=== PATIENT | female | born 1960 | race Two or more races ===

== ENCOUNTER 2024-10-21 03:12 | Emergency (ER) | payer BC, SELFPAY ==
[2024-10-21 03:16] VITALS: BP 130/84; PULSE 74; RESP 18; TEMP 36.4; O2SAT 99
[2024-10-21 04:44] VITALS: BMI 33.9
--- NOTE | 2024-10-21 04:46 | XR_ITS ---
Examination: Abdomen sonogram, Limited Date and time of exam: October 21, 2024, 0418 hrs. Indications: Right upper abdominal pain beginning several days ago Technique: Real-time mathis scale transabdominal sonographic images of the upper abdomen obtained. Findings: Gallbladder sludge with gallstones Gallbladder wall 0.3 cm Common bile duct 0.6 cm. Pancreatic head 2.8 cm Liver 16.0 cm smooth contour no focal liver lesions. Normal hepatopedal portal venous flow Patent IVC Impression: Cholelithiasis, negative for cholecystitis.
--- NOTE | 2024-10-21 04:53 | PD.EDRME ---
Rapid Medical Screening Exam E Arrival date/time: 10/21/24 03:12 63F with history of HTN and CVA presents to ED with 4 days of worsening RUQ/epigastric pain and N/V. Chief Complaint: Abdominal Pain
[2024-10-21 05:33] LABS: Basophils # (Auto) 0.0 Thou/mm3 (0.0-0.2); Basophils % (Auto) 1 % (0-2.5); Eosinophils # (Auto) 0.1 Thou/mm3 (0.0-0.5); Eosinophils % (Auto) 1 % (0-10); Hematocrit 40.3 % (36.0-46.0); Hemoglobin 13.6 g/dL (12.0-16.0); Immature Granulocytes Auto 0.02 Thou/mm3 (0.00-0.00); Lymphocytes # (Auto) 1.6 Thou/mm3 (1.0-4.8); Lymphocytes % (Auto) 19 % (10-50); Mean Corpuscular HGB Conc 33.7 g/dl (31.0-37.0); Mean Corpuscular Hemoglobin 31.0 pg (25.0-35.0); Mean Corpuscular Volume 92 fL (80-100); Monocytes # (Auto) 0.5 Thou/mm3 (0.0-0.8); Monocytes % (Auto) 6 % (0-12); Neutrophils # (Auto) 6.5 Thou/mm3 (1.8-7.7); Neutrophils % (Auto) 74 % (37-80); Nucleated Red Blood Cell # 0.00 Thou/mm3 (0.00-0.00); Nucleated Red Blood Cell % 0 /100 WBC (0); Platelet Count 267 Thou/mm3 (140-440); RDW Standard Deviation 40.5 fL (36.4-46.3); Red Blood Count 4.39 Miln/mm3 (4.00-5.20); White Blood Count 8.7 Thou/mm3 (3.6-11.0)
[2024-10-21] MEDS: ONDANSETRON INJ 2 MG/ML INJ 2 ML 4 MG IVP (05:33)
[2024-10-21] MEDS: MORPHINE SULF INJ 10 MG/ML VIAL 5 MG IVP (05:33)
[2024-10-21 05:40] VITALS: BP 149/75; PULSE 65; RESP 18; O2SAT 96
[2024-10-21 06:09] LABS: Alanine Aminotransferase 26 U/L (10-49); Albumin, Serum 4.5 gm/dL (3.4-4.8); Albumin/Globulin Ratio 1.9 (1.2-2.2); Alkaline Phosphatase 154 U/L (46-116); Anion Gap 11 (7-16); Aspartate Amino Transferase 24 U/L (0-34); BUN/Creatinine Ratio 19 Ratio (12-20); Bilirubin,Total 0.6 mg/dL (0.3-1.2); Blood Urea Nitrogen 17 mg/dL (9-23); Calcium 10.2 mg/dL (8.3-10.6); Calcium (Corrected) 10.2 mg/dL (8.5-10.1); Carbon Dioxide 28.1 mMol/L (20.0-31.0); Chloride 104 mMol/L (98-107); Creatinine (Component) 0.9 mg/dL (0.6-1.3); Estimated Creatinine Clearance 58.4 mL/min (>60); Globulin 2.4 gm/dL (2.3-3.5); Glucose 125 mg/dL (74-106); Lipase 32 U/L (12-53); Osmolality,Calculated 287 (275-295); Potassium 3.8 mMol/L (3.4-5.1); Sodium 143 mMol/L (136-145); Total Protein 6.9 gm/dL (5.7-8.2); eGFR > 60 See Note
--- NOTE | 2024-10-21 06:15 | EDNOTE_ITS ---
<Statement entered by Ofe Zhao MD - 11/06/24 06:33> I, Ofe Zhao MD, have reviewed the history, exam, and assessment of the patient. I have evaluated the patient independently and agree with the plan of care documented by [ ]. All diagnostic studies were reviewed and discussed. I confirm the diagnosis as documented by the Resident. I was present during the Medical Decision Making for this patient. The patient's plan of care was created between myself and the Resident and consistent with our discussion of the patient's case. ED General RME/HPI General Chief complaint: Abdominal Pain Stated complaint: R SIDE ABDOMINAL PAIN Time Seen by Provider: 10/21/24 05:58 Arrival date/time: 10/21/24 03:12 RME / HPI RME / HPI narrative: 10/21/24 03:12 63F with history of HTN and CVA presents to ED with 4 days of worsening RUQ/epigastric pain and N/V. 63-year-old female with past medical history of hypertension and previous CVA comes into the hospital with she complains of right upper quadrant pain/epigastric complaint along with nausea, vomiting, and feelings of abdominal distention. Patient states that she has had this pain for the past 4 days and that yesterday in the afternoon when she had a late lunch started having abdominal pain. Otherwise she mentions that the pain is worse at night around midnight. She denies having any shortness of breath, chest pain, changes in bowel movement, blood in the vomiting, or burning sensation urination. Otherwise has no other complaints. Denies any smoking, drugs, alcohol Related Data Allergies Allergy/AdvReac Type Severity Reaction Status Date / Time NKA* Allergy Uncoded 08/29/09 15:23 Review of Systems Review of Systems Systems Reviewed: All systems reviewed, normal except as documented Past Medical History Past Medical History Comments PMH COMMENT: PMH: CVA and hypertension Social Hx: Denies any smoking, drugs, alcohol ED Exam Narrative Physical exam: Gen: A&O X 3, NAD HEENT: NCAT, EOMI, Pupils reactive SANCHEZ, not icteric. External ears normal. No rhinorrhea. Moist mucous membranes. Neck: Supple, full range of motion, no observable masses, No meningeal sign. Lungs: No Respiratory distress, clear bilateral. CV: RRR, no murmurs. Abdomen: Soft, nondistended, mildly painful to palpation in RUQ, (-) Gonzalez's No rebound tenderness. MSK: No joint swelling, no redness, peripheral pulses presents, lumbar with no edema. Skin: No rashes, petechiae, lesions. Neuro: No focal neurological deficits appreciated, sensory and motor intact. Psych: Cooperative, appropriate mood and effect. Course Quality Measures none Orders Category Date Time Status Insert IV NOW Care 10/21/24 04:46 Active US gall bladder Stat Exams 10/21/24 04:46 Taken CBC Stat Lab 10/21/24 05:20 Completed CMP [Comprehensive Metabolic Panel] Stat Lab 10/21/24 05:20 Completed Lipase Stat Lab 10/21/24 05:20 Completed Morphine Inj Med 10/21/24 04:50 Discontinued 5 mg IVP X1 ONE Ondansetron Inj [Zofran Inj] Med 10/21/24 04:50 Discontinued 4 mg IVP X1 ONE Vital Signs Vital signs: Vital Signs Temperature 97.5 F 10/21/24 03:16 Pulse Rate 74 10/21/24 03:16 Respiratory Rate 18 10/21/24 03:16 Blood Pressure 130/84 10/21/24 03:16 Pulse Oximetry (%) 99 10/21/24 03:16 Oxygen Delivery Method Room Air 10/21/24 03:16 Discharge Plan Plan Patient Disposition: HOME (Self Care) Prescriptions/Referrals Referrals: Louis Rios PA-C [Primary Care Provider] - In 1 week Problem List Clinical Impression: Abdominal pain Patient/Caregiver Discharge Instructions Other Activity Instructions:: Please follow-up with your primary care physician within 1 to 2 days Please follow your primary care physician for gallbladder ultrasound results. Today you were liver function test was within normal limits including T bilirubin. You can take Tylenol every 6 hours as needed for pain for the next 2 or 3 days. Come back to the ED if you develop any fevers, worsening abdominal pain, nausea, vomiting, or any worsening symptoms. Por favor, consulte con lee m?dico de cabecera en un plazo de 1 a 2 d?as. Por favor, consulte con lee m?dico de cabecera para obtener los resultados de la ecograf?a de ves?cula biliar. Hoy, lee prueba de funci?n hep?stan result? dentro de los l?mites normales, incluyendo la bilirrubina T. Puede milady Tylenol cada 6 horas seg?n sea necesario para el dolor rajesh los pr?ximos 2 o 3 d?as. Regrese a urgencias si presenta fiebre, empeoramiento del dolor abdominal, n?useas, v?mitos o cualquier otro s?ntoma que empeore. Education Materials: Abdominal Pain, ED Abdominal Pain Unkn Cause Fem Print Language: [place] Islander Stand Alone Forms: Myriam Award Info., Patient Portal Info Letter MDM Narrative MDM hospital course: Patient was seen and evaluated upon arrival by myself. Patient's lab work was fairly unremarkable other than elevated alkaline phosphatase at 154. Patient states that she did get her gallbladder ultrasound taken, but this is still pending. Patient reevaluated stated that her abdominal pain is better, but she is feeling a little bit dizzy now. Will give patient something to eat and will reevaluate. Still pending ultrasound as ultrasound imaging have not been uploaded. US gallbladder was pending at time of DC due to delay in imaging uplaod. Patient was evaluated and stated that she felt better she was able to tolerate p.o. diet: [place], Jell-O and water. Not dizzy anymore. At this time we will discharge patient back home with close follow-up with primary care physician as no fevers or LFT elevation including T. Sanchez. Patient agrees with plan. Case disclosed with Attending Dr. Cece Veras PGY2 Disclaimer: Even though this this note was dictated by speech recognition and even though it was carefully revised there may still be minor errors in plane tableman due to voice recognition software. Medication Administration(s) Medication Administration History Discontinued Medications Morphine Sulfate (Morphine Sulf Inj 10 Mg/Ml Vial) 5 mg IVP X1 ONE Stop: 10/21/24 04:51 Last Admin: 10/21/24 05:33 Dose: 5 mg Documented By: BHAVIN Ondansetron HCl (Ondansetron Inj 2 Mg/Ml Inj 2 Ml) 4 mg IVP X1 ONE; Protocol Stop: 10/21/24 04:51 Last Admin: 10/21/24 05:33 Dose: 4 mg Documented By: BHAVIN
[2024-10-21 07:57] VITALS: BP 148/70; PULSE 60; RESP 18; TEMP 36.6; O2SAT 97
--- NOTE | 2024-10-21 07:59 | PC.NURSE ---
pt given food and water at this time to see if pt can tolerate it per dr delgado orders
== END 2024-10-21 08:40 | disposition home or self-care (01) ==
PROVIDERS: Physician Assistant; PCP Physician Assistant
DX: K80.20 Calculus of gallbladder without cholecystitis without obstruction (principal); I10 Essential (primary) hypertension; Z86.73 Personal history of transient ischemic attack (TIA), and cerebral infarction without residual deficits
CPT/HCPCS: 36415; 76705; 80053; 83690; 85025; 96374; 96375; 99283; J2270; J2405

== ENCOUNTER 2024-12-05 18:24 | Observation (INO) | payer BC, SELFPAY ==
--- NOTE | 2024-11-30 11:35 | EKG_ITS ---
[facility] (Formerly [facility]) Test Date: 2024-11-30 Pat Name: ABRAHAM Schumacherpartment: Room: - Gender: Female Order Picker/Assembler: SAMUEL : 1960 Requested By: Keyon Simmons Order Number: [id number] Reading MD: Keyon Simmons Measurements Intervals [place] Rate: 53 P: 31 [place]: 184 QRS: 34 QRSD: 85 T: 28 QT: 405 QTc: 384 Interpretive Statements SINUS BRADYCARDIA POSSIBLE ANTERIOR MYOCARDIAL INFARCTION , OF INDETERMINATE AGE [30 ms Q WAVE IN V3/V4, OR R < 0.2 mV IN V4] No previous ECG available for comparison /store/S0/[id number]/ecg/[id number]
[2024-11-30 11:45] VITALS: BMI 33.9
[2024-11-30 13:31] LABS: Basophils # (Auto) 0.0 Thou/mm3 (0.0-0.2); Basophils % (Auto) 1 % (0-2.5); Eosinophils # (Auto) 0.2 Thou/mm3 (0.0-0.5); Eosinophils % (Auto) 3 % (0-10); Hematocrit 40.9 % (36.0-46.0); Hemoglobin 13.8 g/dL (12.0-16.0); Immature Granulocytes Auto 0.02 Thou/mm3 (0.00-0.00); Lymphocytes # (Auto) 2.1 Thou/mm3 (1.0-4.8); Lymphocytes % (Auto) 43 % (10-50); Mean Corpuscular HGB Conc 33.7 g/dl (31.0-37.0); Mean Corpuscular Hemoglobin 31.2 pg (25.0-35.0); Mean Corpuscular Volume 92 fL (80-100); Monocytes # (Auto) 0.3 Thou/mm3 (0.0-0.8); Monocytes % (Auto) 7 % (0-12); Neutrophils # (Auto) 2.3 Thou/mm3 (1.8-7.7); Neutrophils % (Auto) 46 % (37-80); Nucleated Red Blood Cell # 0.00 Thou/mm3 (0.00-0.00); Nucleated Red Blood Cell % 0 /100 WBC (0); Platelet Count 264 Thou/mm3 (140-440); RDW Standard Deviation 41.3 fL (36.4-46.3); Red Blood Count 4.43 Miln/mm3 (4.00-5.20); White Blood Count 5.0 Thou/mm3 (3.6-11.0)
[2024-11-30 13:38] LABS: INR 1.0 (0.9-1.3); Partial Thromboplastin Time 28.8 Seconds (22.0-36.0); Prothrombin Time 11.0 Seconds (9.0-12.2)
[2024-11-30 13:44] LABS: Alanine Aminotransferase 31 U/L (10-49); Albumin, Serum 4.3 gm/dL (3.4-4.8); Albumin/Globulin Ratio 1.8 (1.2-2.2); Alkaline Phosphatase 121 U/L (46-116); Anion Gap 11 (7-16); Aspartate Amino Transferase 26 U/L (0-34); BUN/Creatinine Ratio 18 Ratio (12-20); Bilirubin,Total 0.6 mg/dL (0.3-1.2); Blood Urea Nitrogen 14 mg/dL (9-23); Calcium 9.2 mg/dL (8.3-10.6); Calcium (Corrected) 9.2 mg/dL (8.5-10.1); Carbon Dioxide 27.4 mMol/L (20.0-31.0); Chloride 105 mMol/L (98-107); Creatinine (Component) 0.8 mg/dL (0.6-1.3); Estimated Creatinine Clearance 65.8 mL/min (>60); Globulin 2.4 gm/dL (2.3-3.5); Glucose 99 mg/dL (74-106); Osmolality,Calculated 285 (275-295); Potassium 4.2 mMol/L (3.4-5.1); Sodium 143 mMol/L (136-145); Total Protein 6.7 gm/dL (5.7-8.2); eGFR > 60 See Note
[2024-12-05] VITALS (38 sets, daily range): BP systolic 77–169; BP diastolic 49–82; PULSE 54–96; RESP 11–27; TEMP 36–36.4; O2SAT 94–100; BMI 34.6; BMI 35.1
[2024-12-05] MEDS: RINGERS LACTATED 1000 ML 1,000 ML 20 ML IV (06:58)
--- NOTE | 2024-12-05 07:17 | CHAP ---
Prayed with patient for her upcoming procedure. Her family member translated for me as patient did not speak [place]ese.
--- NOTE | 2024-12-05 10:06 | SUR.PHASEI ---
pt received from OR in recovery bay 4. pt obtunded, breathing unlabored on oxymask 8l, oral airway in place. v/s stable. pt dressing to abd x4 cdi. report received from Dr. Soto and Bryan ROY.
--- NOTE | 2024-12-05 10:24 | PD.SUROPNT ---
Date of Procedure 12/05/24 Pre Op Diagnosis Symptomatic cholelithiasis Post Op Diagnosis Same Procedure Laparoscopic cholecystectomy Findings Patient was found to have large stone and multiple small stones with sludge with gallbladder showing some chronic inflammation with thickening Procedure Description After endotracheal anesthesia was given the patient was placed in supine position and the abdomen was prepped with chloroprep solution and draped in a sterile manner. After time out was performed I injected a few cc of of half percent Marcaine with epinephrine below the umbilicus and I made an incision for about 3 cm in length. The fascia was cleaned and Veress needle was inserted to create a pneumoperitoneum up to 15 mmHg. Then introduced a 12 mm trocar and a 10 mm camera through the fascia and I inspected the intra-abdominal organs as well as the gallbladder and the liver. Another 5 mm trocar was inserted in the epigastric region under direct vision after injecting some local anesthesia. At this time the patient was kept in reverse Trendelenburg position with the left lateral tilt. The third 5 mm trocar was inserted over the mid axillary line under direct vision and a Arnulfo and Gentry grasper was used to hold the fundus of the gallbladder. The retraction was carried out by the assistant professor of dietetics moving the fundus of the gallbladder towards the right shoulder of the patient to create enough traction. I placed a another 5 mm trocar in the midaxillary line just lateral to the rectus muscle under direct vision. I used a fenestrated grasper to retract the neck of the gallbladder laterally towards the patient's right hip. The Calot's triangle was exposed and I achieved the critical view of safety as follows: The common bile duct was very close to the gallbladder neck because the patient had a short cystic duct. I dissected out the fatty tissue from the hepatocystic triangle and cleared this area. I also dissected inferior and posterior to the gallbladder to identify the cystic duct and the gallbladder wall. Then superiorly I dissected along the cystic plate up to lower one third third of the gallbladder to lift the gallbladder from the liver. At this time I confirmed that only 2 structures entering the gallbladder were cystic artery and the cystic duct. The common duct was seen distally but no dissection was carried out around the duct. I did not see any need for operative cholangiogram in this patient. The cystic duct was clipped doubly and then divided and cystic artery was similarly dealt with. Then the gallbladder was removed from the liver bed using Harmonic monik to control the small blood vessels as the dissection proceeded. Then the gallbladder was from the liver bed completely and delivered through the umbilical port using an Endopouch. The liver bed was coagulated with cautery to obtain satisfactory hemostasis. I left a Surgicel at the liver bed the trocars were pulled out from the abdominal cavity and the fascia at the umbilical incision was closed with interrupted 0 Ethibond. Subcutaneous tissues was closed with 3-0 chromic and injected a few cc of half percent Marcaine with epinephrine and the skin was closed with interrupted 4-0 nylon stitches at all the trocar sites. Dressing was applied with 2 x 2 and Tegaderm. Patient tolerated the procedure well and returned to recovery room in stable condition. Anesthesia GETA Pathology / specimen Other (Gallbladder and the stones) Estimated Blood Loss 50 Surgeon Arleth Valencia MD Surgical Staff Operation Date: 12/05/24 08:00 Case Staff Anesthesiologist: Mikael Soto RN First Assistant: Bettie Myers
[2024-12-05] MEDS: ONDANSETRON INJ 2 MG/ML INJ 2 ML 4 MG IVP (11:38)
[2024-12-05] MEDS: fentaNYL CIT INJ 50 mCg/ML AMP 2ML 25 MCG IVP (12:01)
--- NOTE | 2024-12-05 12:06 | SUR.PHASEII ---
pt able to tolerate ice chips without difficulty swallowing or nausea/vomiting.
--- NOTE | 2024-12-05 12:50 | SUR.PHASEII ---
pt drowsy but arouses to voice, breathing unlabored, dressing to abdomen clean, dry, and intact, VS stable, report from Shorty ROY
--- NOTE | 2024-12-05 13:23 | SUR.PHASEII ---
pt stated she needed to void, attempted to sit pt on side of [facility] to prepare to stand, when pt stood up she became dizzy and was seated back on [facility]. pt suddenly became lethargic and began to lose control of her urine and urinated on the floor, pt was assisted to laying position on [facility] by myself, Becky ROY and Yesika ROY. Dr Soto notified and came to bedside. Pt BP 74/42 at [address] [facility], BP retaken at 1323 and was 88/51, pt drowsy but responding to voice, IV fluids reconnected and started per Dr Soto, BP rechecked at 1325 and was 112/57. Per Dr Soto-continue to monitor, no new orders.
--- NOTE | 2024-12-05 13:25 | SUR.PHASEII ---
report to Shorty ROY
[2024-12-05 14:16] LABS: Basophils # (Auto) 0.0 Thou/mm3 (0.0-0.2); Basophils % (Auto) 0 % (0-2.5); Eosinophils # (Auto) 0.0 Thou/mm3 (0.0-0.5); Eosinophils % (Auto) 0 % (0-10); Hematocrit 33.7 % (36.0-46.0); Hemoglobin 11.3 g/dL (12.0-16.0); Immature Granulocytes Auto 0.08 Thou/mm3 (0.00-0.00); Lymphocytes # (Auto) 0.8 Thou/mm3 (1.0-4.8); Lymphocytes % (Auto) 6 % (10-50); Mean Corpuscular HGB Conc 33.5 g/dl (31.0-37.0); Mean Corpuscular Hemoglobin 31.0 pg (25.0-35.0); Mean Corpuscular Volume 92 fL (80-100); Monocytes # (Auto) 0.2 Thou/mm3 (0.0-0.8); Monocytes % (Auto) 1 % (0-12); Neutrophils # (Auto) 13.0 Thou/mm3 (1.8-7.7); Neutrophils % (Auto) 93 % (37-80); Nucleated Red Blood Cell # 0.00 Thou/mm3 (0.00-0.00); Nucleated Red Blood Cell % 0 /100 WBC (0); Platelet Count 234 Thou/mm3 (140-440); RDW Standard Deviation 41.3 fL (36.4-46.3); Red Blood Count 3.65 Miln/mm3 (4.00-5.20); White Blood Count 14.0 Thou/mm3 (3.6-11.0)
--- NOTE | 2024-12-05 14:45 | SUR.PHASEII ---
pt awake and alert, requesting to use restroom. pt assisted to wheelchair. while in wheelchair pt had syncopal episode and urinated while in wheelchair. pt awoke after 2 minutes. pt was assisted back to bed and oxygen was placed on pt.
--- NOTE | 2024-12-05 14:45 | SUR.PHASEII ---
pt awake and alert, requesting to use restroom. pt assisted to wheelchair. while in restroom pt had syncopal episode and urinated while in wheelchair. pt awoke after 2 minutes. pt was assisted back to bed and oxygen was placed on pt.
--- NOTE | 2024-12-05 14:50 | SUR.PHASEII ---
Dr. Campbell and Dr. Soto contacted and informed of pts condition. Rn instructed to monitor pt until Dr. Campbell is able to come communicate with pt.
--- NOTE | 2024-12-05 15:05 | SUR.PHASEII ---
Dr. Soto at bedside to assess pts condition.
--- NOTE | 2024-12-05 15:23 | SUR.PHASEII ---
Dr. Campbell at bedside to assess pt condition. Rn informed to monitor pt until pt is more awake.
--- NOTE | 2024-12-05 16:22 | SUR.PHASEII ---
1622: Pt. AAOx4, vitals stable, breathing unlabored, no complaint of pain or nauseal, pt. sitting upright eating jello tolerating well, report received report from Shorty ROY.
--- NOTE | 2024-12-05 16:22 | SUR.PHASEII ---
report given to Amber ROY at this time. pt awake and alert, breathing unlabored on room air. v/s stable. pt dressing to abd cdi.
--- NOTE | 2024-12-05 16:56 | SUR.PHASEII ---
Attempted to stand pt. up again after she finished eating and after she verbalized that she felt better than earlier, pt. stood up for about a minute with assist and then started to close her eyes and sway backwards, pt. was assisted back into bed, BP was rechecked once in bed and her BP had dropped to 95/55 and her BP prior to standing was 121/64. Notified MD Valencia, let him know that pt. is past her 6 hour stay in PACU and that a decision had to be made for her to be placed in observation/admitted, MD Valencia stated he is at the clinic working and has a meeting and won't be able to make any decision until 7pm, and stated to just continue to monitor her. Pt. currently back in bed visiting her son. Vitals stable, breathing unlabored.
--- NOTE | 2024-12-05 18:20 | SUR.PHASEII ---
1820: Pt. AAOx4, vitals stable, breathing unlabored, no complaint of pain or nausea, x4 dressing to ABD CDI, no active bleed noted, pt. tolerated sips of water well and bites of jello well, MD Dee came at pt. bedside and consulted pt., he stated he wanted to modify MD Cardoza verbal order and put pt. on medtele. Gave report to Beth ROY prior to transfer to room 373, pt. transferred with all personal belongings, family made aware of transfer to room.
--- NOTE | 2024-12-05 20:55 | PD.RESCONSUL ---
HPI Data of Consult Consult date: 12/05/24 Requesting Physician: Arleth Valencia MD Admitting Provider: Arleth Valencia MD Attending Provider: Monik Palmer MD Primary Care Provider: Souleymane Rios PA-C Consult Narrative Reason for consult: Postop dizziness/lightheadedness History of present illness: Patient: 63-year-old female past medical history of hypertension, prior CVA Presenting Issue: Symptomatic cholelithiasis, admitted for laparoscopic cholecystectomy Reason for Consultation: Postoperative dizziness and lightheadedness on post-op day 1. Evaluation: The patient reports dizziness and lightheadedness upon standing. According to a family member at the bedside, she experienced a brief presyncopal episode earlier today, lasting a few minutes. Since then, the patient has stabilized and reports some improvement in her lightheadedness. She also endorses dry mouth, mild abdominal discomfort at the incision site, and orthostatic intolerance. The patient denies nausea, vomiting, headache, vision changes, or generalized weakness. Past Medical History: S/p CVA (August 19), HTN Family History: Noncontributory Surgical History: Hysterectomy Social History: Denies history of smoking, denies current alcohol use, denies recreational drug use Home medications: Aspirin 81 mg, atorvastatin 80 mg, Plavix 5 mg, famotidine 21, losartan 25 mg. cc:: cc: Arleth Valencia MD Review of Systems Constitutional Constitutional: Reports system reviewed and no additional complaints, except as documented Exam Vital Signs Temp Pulse Resp BP Pulse Ox O2 Del Method O2 Flow Rate 97.3 F 65 20 133/69 H 97 Nasal Cannula 2 12/05/24 18:34 12/05/24 18:34 12/05/24 18:34 12/05/24 18:34 12/05/24 18:34 12/05/24 18:34 12/05/24 18:34 Constitutional Constitutional: no acute distress and cooperative Routine HEENT Exam Head: Present normocephalic and atraumatic Eye: Present EOMI and PERRL ENT: Present mucous membranes dry Routine Respiratory Exam Respiratory: Present chest non-tender, lungs clear, normal breath sounds, no resp distress and CTA bilaterally Routine Cardiovascular Exam Cardiovascular: Present RRR, S1 and S2 Routine Abdominal Exam Abdominal: Present soft, normoactive bowel sounds and tenderness (generalized tenderness ) Routine Extremities Exam Extremities: Present full ROM and normal capillary refill Results Labs 12/05/24 13:40 12/05/24 23:47 Labs: Short CBC 12/05/24 Range/Units 13:40 WBC 14.0 H D (3.6-11.0) Thou/mm3 Hgb 11.3 L D (12.0-16.0) g/dL Hct 33.7 L (36.0-46.0) % Plt Count 234 D (140-440) Thou/mm3 Quality Measures Quality Measures none Medications Home Medications and Allergies Home Medications ?Medication ?Instructions ?Recorded ?Confirmed ?Type aspirin 81 mg tablet,delayed 81 mg PO QDAY 11/30/24 12/05/24 History release (Adult Aspirin Regimen) atorvastatin 80 mg tablet 80 mg PO QDAY 11/30/24 12/05/24 History clopidogrel 75 mg tablet (Plavix) 75 mg PO QDAY 11/30/24 12/05/24 History Held on 12/05/24. Instructions: Resume on 12/08/24. famotidine 20 mg tablet 20 mg PO QDAY 11/30/24 12/05/24 History losartan 25 mg tablet 25 mg PO QDAY 11/30/24 12/05/24 History Allergies Allergy/AdvReac Type Severity Reaction Status Date / Time No Known Allergies Allergy Verified 12/05/24 06:35 Visit Medications Lactated Ringer's (Lactated Ringers) 1,000 mls @ 20 mls/hr IV .Q24H ONE Stop: 12/06/24 05:59 Last Admin: 12/05/24 06:58 Dose: 20 mls/hr Ketorolac Tromethamine (Ketorolac Inj 30 Mg/Ml Vial) 30 mg IVP Q6HR PRN PRN Reason: PAIN SCALE 4-10(Mod-Sev Stop: 12/10/24 17:58 Ondansetron HCl (Ondansetron Inj 2 Mg/Ml Inj 2 Ml) 4 mg IV Q6HR PRN; Protocol PRN Reason: NAUSEA OR VOMITING Stop: 01/04/25 18:06 Discontinued Medications Fentanyl Citrate (Fentanyl Cit Inj 50 Mcg/Ml Amp 2ml) 25 mcg IVP Q5M PRN PRN Reason: PAIN SCALE 1-3 (mild Stop: 12/05/24 10:17 Last Admin: 12/05/24 12:01 Dose: 25 mcg Hydromorphone HCl (Hydromorphone Inj 2 Mg/Ml Vial) 0.4 mg IVP Q5M PRN PRN Reason: PAIN SCALE 7-10 (Severe Stop: 12/05/24 10:17 Morphine Sulfate (Morphine Sulf Inj 4 Mg/Ml Vial) 3 mg IV Q5M PRN PRN Reason: PAIN SCALE 4-6 (Moderate Stop: 12/05/24 10:17 Ondansetron HCl (Ondansetron Inj 2 Mg/Ml Inj 2 Ml) 4 mg IVP X1 ONE Stop: 12/05/24 08:17 Last Admin: 12/05/24 11:38 Dose: 4 mg Assessment & Plan Plan Patient is a 63-year-old female with a history of hypertension, prior CVA who presented with symptomatic cholelithiasis and was admitted for laparoscopic cholecystectomy. #Symptomatic Hypotension #Post op dizziness #LAP Beth POD 1 Patient reports dizziness and lightheadedness s/p surgery. Patient reported improved symptoms. Likely in setting of anaesthesia along with dehydration - Orthostatic vital, repeat another in the morning - Hold patient's home Losartan for BP<150 - Increase IV fluid hydration rate to 75cc/hr - Strict ins and out #Hypertension Hold home medications in setting of hypotension Resume once SBP>150 Chronic condition #S/p CVA with no residual deficit -Follow-up with primary team recommendation Patient seen and assessed under supervision of attending physician Dr.Alhalaibeh Candy Heaton MD PGY-1, Internal Medicine Please note: this document was transcribed using voice recognition technology; minor inaccuracies may be present.
[2024-12-05] MEDS: KETOROLAC INJ 30 MG/ML VIAL IVP (23:02)
[2024-12-06] VITALS (7 sets, daily range): BP systolic 130–154; BP diastolic 69–76; PULSE 72–101; RESP 16–96; TEMP 36.6–36.8; O2SAT 94–99
[2024-12-06 00:12] LABS: Anion Gap 13 (7-16); BUN/Creatinine Ratio 11 Ratio (12-20); Blood Urea Nitrogen 9 mg/dL (9-23); Calcium 9.3 mg/dL (8.3-10.6); Carbon Dioxide 20.6 mMol/L (20.0-31.0); Chloride 106 mMol/L (98-107); Creatinine (Component) 0.8 mg/dL (0.6-1.3); Estimated Creatinine Clearance 66.5 mL/min (>60); Glucose 177 mg/dL (74-106); Osmolality,Calculated 282 (275-295); Potassium 4.9 mMol/L (3.4-5.1); Sodium 140 mMol/L (136-145); eGFR > 60 See Note
--- NOTE | 2024-12-06 02:50 | PC.NURSE ---
Dr. Heaton notified that orthostatic vital signs are done and ready for them to view.
[2024-12-06 05:09] LABS: Basophils # (Auto) 0.0 Thou/mm3 (0.0-0.2); Basophils % (Auto) 0 % (0-2.5); Eosinophils # (Auto) 0.0 Thou/mm3 (0.0-0.5); Eosinophils % (Auto) 0 % (0-10); Hematocrit 29.8 % (36.0-46.0); Hemoglobin 10.0 g/dL (12.0-16.0); Immature Granulocytes Auto 0.07 Thou/mm3 (0.00-0.00); Lymphocytes # (Auto) 1.2 Thou/mm3 (1.0-4.8); Lymphocytes % (Auto) 9 % (10-50); Mean Corpuscular HGB Conc 33.6 g/dl (31.0-37.0); Mean Corpuscular Hemoglobin 30.9 pg (25.0-35.0); Mean Corpuscular Volume 92 fL (80-100); Monocytes # (Auto) 0.8 Thou/mm3 (0.0-0.8); Monocytes % (Auto) 6 % (0-12); Neutrophils # (Auto) 11.5 Thou/mm3 (1.8-7.7); Neutrophils % (Auto) 85 % (37-80); Nucleated Red Blood Cell # 0.00 Thou/mm3 (0.00-0.00); Nucleated Red Blood Cell % 0 /100 WBC (0); Platelet Count 271 Thou/mm3 (140-440); RDW Standard Deviation 41.6 fL (36.4-46.3); Red Blood Count 3.24 Miln/mm3 (4.00-5.20); White Blood Count 13.5 Thou/mm3 (3.6-11.0)
[2024-12-06 06:11] LABS: Anion Gap 10 (7-16); BUN/Creatinine Ratio 12 Ratio (12-20); Blood Urea Nitrogen 11 mg/dL (9-23); Calcium 9.5 mg/dL (8.3-10.6); Carbon Dioxide 25.3 mMol/L (20.0-31.0); Chloride 107 mMol/L (98-107); Creatinine (Component) 0.9 mg/dL (0.6-1.3); Estimated Creatinine Clearance 59.1 mL/min (>60); Glucose 152 mg/dL (74-106); Osmolality,Calculated 285 (275-295); Potassium 4.7 mMol/L (3.4-5.1); Sodium 142 mMol/L (136-145); eGFR > 60 See Note
[2024-12-06] MEDS: SODIUM CHLORIDE 0.9% 1000 ML 1,000 ML 100 ML IV (06:35)
--- NOTE | 2024-12-06 08:04 | EKG_ITS ---
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
--- NOTE | 2024-12-06 09:13 | PD.SURPROG ---
Documentation for date of: 12/06/24 Subjective Subjective Narrative: The patient is doing well during her stay last night. She did not have any dizziness while she was up. No history of orthostatic hypotension Exam Vital Signs Temp Pulse Resp BP Pulse Ox O2 Del Method O2 Flow Rate 98.2 F 82 16 134/69 H 94 L Room Air 2 12/06/24 08:00 12/06/24 08:00 12/06/24 08:00 12/06/24 08:00 12/06/24 08:00 12/06/24 08:00 12/06/24 00:00 Her vital signs are normal Routine Abdominal Exam Comments: Abdominal examination is negative Results Results: Laboratory Laboratory Narrative: Slight leukocytosis present on the lab work Assessment & Plan Plan Plan: Patient will be discharged today PROCEDURES: Procedures Laparoscopic cholecystectomy
--- NOTE | 2024-12-06 09:42 | PD.RESDS ---
Planned Discharge Date 12/06/24 DS: Providers Provider Date of admission: 12/05/24 18:24 Primary care physician: Souleymane Rios PA-C Admitting Provider: Arleth Valencia MD Attending Provider on Admission: Arleth Valencia MD Consults: 12/05/24 17:58 Consult to Adult Hospitalist Stat Comment: Consulting Provider: Emmanuel Dee 12/05/24 19:01 Referral Physical Therapy Routine Comment: Physician Instructions: Attending Provider on DC: Dr. Marks Discharging Provider: Dr. Marks Hospital Course Hospital Course Hospital course: Patient is a 63-year-old female with a history of hypertension, prior CVA who presented with symptomatic cholelithiasis and was admitted for laparoscopic cholecystectomy. Immediately following surgery patient had event of syncope, orthostatic vitals were noncontributory and 12/06 EKG had no abnormal findings. Today patient had no symptoms of dizziness, is safe to discharge. Discharge Instructions: #Symptomatic Hypotension #Post op dizziness #LAP Beth POD 1 #Hypertension Patient's plan and care discussed with my attending, Dr. Marks, and supervising resident MD Miguel A Nunez MD Internal Medicine PGY-1 Time Spent with Patient Time attestation: Total time spent providing and/or coordinating discharge services: Quality: VTE Deep Vein Thrombosis/Pulmonary Embolism Present on Admission: No Exam Vital Signs Temp Pulse Resp BP Pulse Ox O2 Del Method O2 Flow Rate 98.2 F 85 16 134/69 H 94 L Room Air 2 12/06/24 08:00 12/06/24 09:13 12/06/24 09:13 12/06/24 08:00 12/06/24 08:00 12/06/24 08:00 12/06/24 00:00 Narrative Exam GENERAL APPEARANCE: AOx3. NAD, activity normal for age, well developed/ well nourished, no cyanosis, pallor, or diaphoresis. HEENT: Normocephalic atraumatic, no facial trauma, neck is supple. Lids/conjunctiva normal. Mucous membranes moist, nares normal, lips/teeth normal uvula midline without oral pharyngeal erythema, exudate or swelling TMs normal bilaterally. No lymphangitis/lymphedema. CARDIAC: Regular rate and rhythm, S1+S2 heard. No murmurs, rubs, or gallops noted RESPIRATORY: respiratory effort normal, speaks in full sentences, no tripod position, no accessory muscle use. Lungs clear to auscultation without rhonchi, wheezes, rales ABDOMINAL: NBS. Soft, ND/NT. No evidence of fluid wave. No pulsatile masses on exam, rebound tenderness, Gonzalez sign or pain over Mcburney's point. Incision CDI, appropriate abdominal tenderness. MUSCLES/EXTREMITIES: No abnormal range of motion, no swelling. DERM: Warm, pink and dry. No rashes, dermatoses, petechiae or lesions. NEUROLOGICAL: Speech is clear and appropriate. Normal level of consciousness. Gait and coordination are normal. 5/5 strength in all extremities. PSYCH: Normal mood and affect. Judgement/competence is appropriate Discharge Plan Plan Patient Disposition: HOME (Self Care) Prescriptions/Referrals Prescriptions/Med Rec: Continued aspirin [Adult Aspirin Regimen] 81 mg tablet,delayed release (DR/EC) 81 mg PO QDAY losartan 25 mg tablet 25 mg PO QDAY famotidine 20 mg tablet 20 mg PO QDAY atorvastatin 80 mg tablet 80 mg PO QDAY Held clopidogrel [Plavix] 75 mg tablet 75 mg PO QDAY Hold Instructions: Resume on 12/08/24. Referrals: Louis Rios PA-C [Primary Care Provider, Medical] Arleth Valencia MD [Physician, General Surgery] Patient/Caregiver Discharge Instructions Education Materials: Anesthesia: General Anesthesia, Surgery Anesthesia After, Cholecystectomy Laparoscopic Dc, Preventing Surgical Site Infections, [facility] General Discharge-Divehi Print Language: Divehi Activity Restrictions/Additional Instructions: Clear liquids today regular diet tomorrow remove dressing tomorrow and shower Avoid constipation; use laxative of choice F/u in my office on Wednesday, 15 December. Call for an appointment time L?quidos kamron hoy Dieta normal ma?patti Qu?tese el vendaje ma?patti y d?chese Evite el estre?imiento; use el laxante de lee preferencia Venga a mi consultorio el viernes . Llame al 80 para programar collin tello. Stand Alone Forms: Myriam Award Info., Patient Portal Info Letter Discharge Order Discharge Orders: Discharge (Routine); Ordered 12/06/24 Ordered By: Arleth Valencia
--- NOTE | 2024-12-06 11:12 | ESPR_ITS ---
<Statement entered by Dalton Baldwin MD - 12/06/24 15:45> I saw and examined patient personally and supervised PGY 1 resident, Dr. Francois with formulating a management plan. I agree with the documentation with the exceptions as listed below. Internal medicine was consulted for postop dizziness and symptomatic hypotension which has since resolved. Orthostatic vitals were negative as well as [place]- Hallpike maneuver. Most likely etiology was secondary to anesthesia. Patient reported that immediately postop she asked for assistance to use the restroom and after she began micturition she fainted. Currently patient is day 1 postoperatively laparoscopic cholecystectomy and tolerated regular diet this morning. Internal medicine will be signing off at this point. Rest of management as per primary team, general surgery. Plan of care discussed with Attending Dr. Selina Baldwin MD PGY 2 Disclaimer: This note was dictated by speech recognition. Minor errors in representative phlebotomy services may be present due to voice recognition software. Documentation for date of: 12/06/24 Subjective Subjective Interval history: Patient seen and examined bedside. Reports nausea has resolved and no episodes of dizziness or falls have occurred. Has normal diet, and appetite eating her breakfast of buttered croatian toast with syrup and [place] POD 1 from lap beth. Orthostatic vitals yesterday were normal. Labs have been reviewed. Patient safe to discharge per Dr. Campbell. Exam Vital Signs Temp Pulse Resp BP Pulse Ox O2 Del Method O2 Flow Rate 98.2 F 79 16 134/69 H 94 L Room Air 2 12/06/24 08:00 12/06/24 10:17 12/06/24 09:13 12/06/24 08:00 12/06/24 08:00 12/06/24 08:00 12/06/24 00:00 Narrative Exam GENERAL APPEARANCE: AOx3. NAD, activity normal for age, well developed/ well nourished, no cyanosis, pallor, or diaphoresis. HEENT: Normocephalic atraumatic, no facial trauma, neck is supple. Lids/conjunctiva normal. Mucous membranes moist, nares normal, lips/teeth normal uvula midline without oral pharyngeal erythema, exudate or swelling TMs normal bilaterally. No lymphangitis/lymphedema. CARDIAC: Regular rate and rhythm, S1+S2 heard. No murmurs, rubs, or gallops noted RESPIRATORY: respiratory effort normal, speaks in full sentences, no tripod position, no accessory muscle use. Lungs clear to auscultation without rhonchi, wheezes, rales ABDOMINAL: NBS. Soft, ND/NT. No evidence of fluid wave. No pulsatile masses on exam, rebound tenderness, Gonzalez sign or pain over Mcburney's point. Incisions CDI with appropriate tenderness. MUSCLES/EXTREMITIES: No abnormal range of motion, no swelling. DERM: Warm, pink and dry. No rashes, dermatoses, petechiae or lesions. NEUROLOGICAL: Speech is clear and appropriate. Normal level of consciousness. Gait and coordination are normal. 5/5 strength in all extremities. PSYCH: Normal mood and affect. Judgement/competence is appropriate Objective Labs 12/06/24 04:51 12/06/24 04:51 Labs: Laboratory Results - last 24 hr 12/05/24 12/05/24 12/06/24 13:40 23:47 04:51 WBC 14.0 H D 13.5 H RBC 3.65 L 3.24 L Hgb 11.3 L D 10.0 L Hct 33.7 L 29.8 L MCV 92 92 MCH 31.0 30.9 MCHC 33.5 33.6 RDW Std Deviation 41.3 41.6 Plt Count 234 D 271 D Neut % (Auto) 93 H 85 H Lymph % (Auto) 6 L 9 L Victoria % (Auto) 1 6 Eos % (Auto) 0 0 Baso % (Auto) 0 0 Neut # (Auto) 13.0 H 11.5 H Lymph # (Auto) 0.8 L 1.2 Victoria # (Auto) 0.2 0.8 Eos # (Auto) 0.0 0.0 Baso # (Auto) 0.0 0.0 Immature Gran # (Auto) 0.08 H 0.07 H Absolute Nucleated RBC 0.00 0.00 Immature Gran % 1 H 1 H Nucleated RBC % 0 0 Sodium 140 142 Potassium 4.9 4.7 Chloride 106 107 Carbon Dioxide 20.6 25.3 Anion Gap 13 10 BUN 9 11 Creatinine 0.8 0.9 Estim Creat Clear Calc 66.5 59.1 L eGFR > 60 > 60 BUN/Creatinine Ratio 11 L 12 Glucose 177 H 152 H Calculated Osmolality 282 285 Calcium 9.3 9.5 Quality Measures Quality Measures none Assessment & Plan Assessment Current Active Medications: Generic Name Dose Route Start Last Admin Trade Name Freq PRN Reason Stop Dose Admin Sodium Chloride 1,000 mls @ 100 mls/hr 12/06/24 05:39 12/06/24 06:35 Ns IV 12/06/24 15:38 100 mls/hr .Q10H ONE Administration Ketorolac Tromethamine 30 mg 12/05/24 17:59 12/05/24 23:02 Ketorolac Inj 30 Mg/Ml Vial IVP 12/10/24 17:58 30 mg Q6HR PRN Administration PAIN SCALE 4-10(Mod-Sev Ondansetron HCl 4 mg 12/05/24 18:07 Ondansetron Inj 2 Mg/Ml Inj 2 Ml IV 01/04/25 18:06 Q6HR PRN NAUSEA OR VOMITING Protocol Plan Patient is a 63-year-old female with a history of hypertension, prior CVA who presented with symptomatic cholelithiasis and was admitted for laparoscopic cholecystectomy. Orthostatic work up was noncontributory, etiology most likely due to attempting to walk patient in OR immediately after surgery before anesthesia wore off. Dr. Campbell ok to DC patient. #Symptomatic Hypotension - resolved #Post op dizziness - resolved #LAP Beth POD 1 Patient reports dizziness and lightheadedness s/p surgery. Patient reported improved symptoms. No neurological symptoms, nystagmus, no preceding aura or tingling of the face. Patient can barely remember episode due to being so sedated by anesthesia at the time. Likely in setting of anaesthesia along with dehydration - Orthostatic vital: Normal - Hold patient's home Losartan for BP<150 - Increase IV fluid hydration rate to 75cc/hr - Strict ins and out #Hypertension Hold home medications in setting of hypotension Resume once SBP>150 #Hx of CVA - On aspirin, plavix, and statins Patient seen and assessed under supervision of attending physician Dr. Marks and supervising resident Dr. Nicolasa Francois MD PGY-1, Internal Medicine Attending Provider Attestation/Addendum I, Yris Marks DO, attest that I was physically present for the sainz portions of the service and evaluated the patient with the resident and I reviewed and discussed the case with the resident and agree with the resident's findings and plans of care as documented above Patient seen and evaluated this AM. Patient had complained of dizziness following lap beth yesterday, likely secondary to sedation following surgery. Patient currently states she is feeling well and has been ambulating to the restroom independently without issue. No further episodes of dizziness. Orthostatics negative. She has been tolerating diet this AM. Patient to be discharged home by gen/surg at this time. Patient is stable for discharge and has no active complaints. IM will sign off at this time. Recall PRN.
== END 2024-12-06 11:28 | disposition home or self-care (01) ==
LOC: S3SX 18:27
PROVIDERS: Student in an Organized Health Care Education/Training Program; Admitting Provider Surgery; PCP Physician Assistant; Referring Provider Surgery; Visit Provider Surgery
PROC: 0FT44ZZ Resection of Gallbladder, Percutaneous Endoscopic Approach (ICD-10-PCS; CPT 47562; principal; 2024-12-05 08:00)
DX: K80.10 Calculus of gallbladder with chronic cholecystitis without obstruction (principal); Z01.810 Encounter for preprocedural cardiovascular examination; I95.81 Postprocedural hypotension; I10 Essential (primary) hypertension; Z90.49 Acquired absence of other specified parts of digestive tract
CPT/HCPCS: 47562; 36415; 80048; 80053; 85025; 85610; 85730; 93005; 96374; 96375; 97162; A4217; A4649; G0378; J0131; J0690; J1100; J1885; J2250; J2405; J2704; J3010; J3490; J7030; J7120; J1596

== ENCOUNTER → 2024-12-08 | Outpatient (CLI) | payer BC, SELFPAY ==
[2024-12-08 17:35] LABS: Basophils # (Auto) 0.0 Thou/mm3 (0.0-0.2); Basophils % (Auto) 0 % (0-2.5); Eosinophils # (Auto) 0.1 Thou/mm3 (0.0-0.5); Eosinophils % (Auto) 1 % (0-10); Hematocrit 27.6 % (36.0-46.0); Hemoglobin 9.3 g/dL (12.0-16.0); Immature Granulocytes Auto 0.07 Thou/mm3 (0.00-0.00); Lymphocytes # (Auto) 1.9 Thou/mm3 (1.0-4.8); Lymphocytes % (Auto) 24 % (10-50); Mean Corpuscular HGB Conc 33.7 g/dl (31.0-37.0); Mean Corpuscular Hemoglobin 31.0 pg (25.0-35.0); Mean Corpuscular Volume 92 fL (80-100); Monocytes # (Auto) 0.5 Thou/mm3 (0.0-0.8); Monocytes % (Auto) 6 % (0-12); Neutrophils # (Auto) 5.3 Thou/mm3 (1.8-7.7); Neutrophils % (Auto) 68 % (37-80); Nucleated Red Blood Cell # 0.02 Thou/mm3 (0.00-0.00); Nucleated Red Blood Cell % 0 /100 WBC (0); Platelet Count 240 Thou/mm3 (140-440); RDW Standard Deviation 41.9 fL (36.4-46.3); Red Blood Count 3.00 Miln/mm3 (4.00-5.20); White Blood Count 7.9 Thou/mm3 (3.6-11.0)
[2024-12-08 17:53] LABS: Alanine Aminotransferase 239 U/L (10-49); Albumin, Serum 4.1 gm/dL (3.4-4.8); Albumin/Globulin Ratio 1.9 (1.2-2.2); Alkaline Phosphatase 163 U/L (46-116); Anion Gap 8 (7-16); Aspartate Amino Transferase 104 U/L (0-34); BUN/Creatinine Ratio 10 Ratio (12-20); Bilirubin,Total 1.3 mg/dL (0.3-1.2); Blood Urea Nitrogen 8 mg/dL (9-23); Calcium 9.1 mg/dL (8.3-10.6); Calcium (Corrected) 9.1 mg/dL (8.5-10.1); Carbon Dioxide 31.7 mMol/L (20.0-31.0); Chloride 102 mMol/L (98-107); Creatinine (Component) 0.8 mg/dL (0.6-1.3); Globulin 2.2 gm/dL (2.3-3.5); Glucose 112 mg/dL (74-106); Osmolality,Calculated 282 (275-295); Potassium 4.1 mMol/L (3.4-5.1); Sodium 142 mMol/L (136-145); Total Protein 6.3 gm/dL (5.7-8.2); eGFR > 60 See Note
== END | disposition home or self-care (01) ==
LOC: COPL 17:10
PROVIDERS: PCP Physician Assistant; Referring Provider Surgery; Visit Provider Surgery
DX: K80.20 Calculus of gallbladder without cholecystitis without obstruction (principal)
CPT/HCPCS: 36415; 80053; 85025

== ENCOUNTER 2024-12-11 15:40 | Emergency (ER) | payer BC, SELFPAY ==
--- NOTE | 2024-12-11 | XR_ITS ---
MRI abdomen, without contrast. MRCP Date and time of exam: December 11, 2024, 0652 hrs. Indications: Severe lower abdominal pain beginning 2 days ago, cholecystectomy 1 week ago Technique: Multiple axial and coronal images of the abdomen have been obtained with the Siemens 1.5T MRI scanner. Images obtained included T1 weighted transverse images, T2-weighted transverse images, T2-weighted transverse images fat-suppressed, T2 weighted haste fat suppressed transverse images, T1 weighted images, in and out of phase images, T2-weighted coronal images, breath hold, T2 weighted haze coronal images as well as T2 weighted coronal thick slab images, MRCP. Findings: No focal liver lesions Absent gallbladder Common bile duct 6.6 mm Abrupt termination meniscus type defect in the distal duct image 16, coronal Negative for pancreatitis Spleen is not enlarged No hydronephrosis No ascites Abdominal aorta is normal in size Impression: Suspicious for 5 mm impacted stone in the distal common bile duct, consider ERCP follow-up
[2024-12-11 15:42] VITALS: BMI 34.3
[2024-12-11 15:57] VITALS: BP 131/84; PULSE 86; RESP 18; TEMP 37.8; O2SAT 97
--- NOTE | 2024-12-11 16:03 | XR_ITS ---
Examination: CT abdomen with intravenous contrast CT pelvis with intravenous contrast 2-D coronal reconstructions 2-D sagittal reconstructions Date and time of exam:December 11, 2024, 1920 hrs. Indications: Surgery one week ago followed by generalized abdominal pain. CTDI: vol (mGy) 9.9 DLP: (mGycm) 500 Technique: Multiple axial sections of the abdomen and pelvis have been obtained. 64 slice high-resolution scanner used. 3 mm axial sections have been obtained, post intravenous injection 60 cc [id number] 2-D sagittal, coronal reconstructions obtained. Low dose protocols were performed. One or more of the following dose reduction techniques were used; automated exposure control, adjustment of the mA and/or KV according to patient size, use of iterative reconstruction technique. Findings: No focal liver or splenic lesions Fluid and air collection in the gallbladder fossa consistent with abscess, 7.7 x 2.1 cm No pancreatic or adrenal mass Common bile duct 4 mm no definite stones noted on this study No hydronephrosis Normal appendix Postoperative change in the anterior abdominal wall Mild to moderate free fluid in the pelvis Impression: Air and fluid collection in the gallbladder fossa most consistent with abscess, 7.7 x 2.1 cm No definite stone in the common bile duct is confirmed
--- NOTE | 2024-12-11 16:04 | PD.EDRME ---
Rapid Medical Screening Exam RME Arrival date/time: 12/11/24 15:40 64-year-old female with a history of hypertension, hyperlipidemia presents to the emergency room with a chief complaint of 10 out of 10 lower abdominal pain x 2 days. Patient recently had a cholecystectomy done 1 week ago. I spoke to the general surgeon Dr Guerrero who recommended ordering an MRCP as well as a CT scan and labs I have greeted and performed a focused initial assessment of this patient. A comprehensive ED assessment and evaluation of the patient, analysis of all test results, and completion of the medical decision making process will be conducted by additional ED providers. Chief Complaint: Fever Time Seen by Provider: 12/11/24 15:50 Vital signs: Vital Signs Temperature 100.0 F 12/11/24 15:57 Pulse Rate 86 12/11/24 15:57 Respiratory Rate 18 12/11/24 15:57 Blood Pressure 131/84 H 12/11/24 15:57 Pulse Oximetry (%) 97 12/11/24 15:57 Oxygen Delivery Method Room Air 12/11/24 15:57 Vital signs reviewed by provider: Yes
--- NOTE | 2024-12-11 16:48 | PD.EDADULT ---
ED General RME/HPI General Chief complaint: Fever Stated complaint: FEVER AND PAIN POST OP Time Seen by Provider: 12/11/24 15:50 Arrival date/time: 12/11/24 15:40 CC: Low center abdominal pain with bruising, 10/10 pain, nighttime fevers at 100.1. Decreased appetite with intermittent nausea no vomiting. Onset after having surgery 1 week ago for cholecystectomy by Dr Valencia. Patient is awake alert oriented with stable vital signs. RME / HPI RME / HPI narrative: 12/11/24 15:40 64-year-old female with a history of hypertension, hyperlipidemia presents to the emergency room with a chief complaint of 10 out of 10 lower abdominal pain x 2 days. Patient recently had a cholecystectomy done 1 week ago. I spoke to the general surgeon Dr Guerrero who recommended ordering an MRCP as well as a CT scan and labs I have greeted and performed a focused initial assessment of this patient. A comprehensive ED assessment and evaluation of the patient, analysis of all test results, and completion of the medical decision making process will be conducted by additional ED providers. Related Data Home Medications ?Medication ?Instructions ?Recorded ?Confirmed aspirin 81 mg tablet,delayed 81 mg PO QDAY 11/30/24 12/05/24 release (Adult Aspirin Regimen) atorvastatin 80 mg tablet 80 mg PO QDAY 11/30/24 12/05/24 clopidogrel 75 mg tablet (Plavix) 75 mg PO QDAY 11/30/24 12/05/24 Held on 12/05/24. Instructions: Resume on 12/08/24. famotidine 20 mg tablet 20 mg PO QDAY 11/30/24 12/05/24 losartan 25 mg tablet 25 mg PO QDAY 11/30/24 12/05/24 Allergies Allergy/AdvReac Type Severity Reaction Status Date / Time No Known Allergies Allergy Verified 12/05/24 06:35 Review of Systems Review of Systems Narrative Review of Systems: GEN: + fever, no chills, no weight loss EYES: No discharge, no visual changes, no pain HEENT: No ear pain, no congestion, no sore throat PULM: No shortness of breath, no cough, no congestion CV: No chest pain, no dyspnea on exertion, no palpitations GI: No nausea, no vomiting, no diarrhea, + pain, no constipation : No frequency, no urgency, no dysuria MUSC/SKEL: No joint pain, no back pain SKIN: Discoloration to the lower abdomen, no rash PSYCH: No hallucinations, no depression HEME/LYMPH: No easy bleeding or bruising tendencies NEURO: No weakness, no headache Past Medical History Past Medical History NEUROLOGIC: Positive Neurological Disorders and Cerebrovascular Accident (3 mos ago); Negative Seizures CARDIAC: Positive Cardiac Disorders, Hypercholesterolemia and Hypertension; Negative Congestive Heart Failure RESPIRATORY: Negative Chronic Obstructive Pulmonary Disease (COPD) GASTROINTESTINAL: Positive Gastrointestinal Disorders, Hepatitis (A) and Gall Bladder Disease GENITOURINARY: Negative Genitourinary Disorders or Renal Disease REPRODUCTIVE: Positive Previous Pregnancies (3) MUSCULOSKELETAL: Positive Musculoskeletal Disorders and Arthritis ENDOCRINE: Negative Endocrine Disorders, Diabetes Mellitus Type 1 or Diabetes Mellitus Type 2 HEMATOLOGIC: Negative Blood Disorders OTHER HISTORY: Positive Hospitalization (CVA) and Chicken Pox; Negative Autoimmune Disease, Shingles, Blood Transfusions, Anesthesia Reactions or Cancer Family History FAMILY HISTORY: Positive Family Cardiac Disorders, Family Cancer, Family Surgery and Family Anesthesia Reaction (sister difficulty breathing); Negative Family Psychiatric Problems, Family Respiratory Disorders or Family Gastrointestinal Problems Surgical History SURGICAL: Positive Hysterectomy and Tubal Ligation Social History SMOKING STATUS: Never smoker ED Exam Narrative Physical exam: [General: Obese in mild discomfort but not in any acute distress Head normocephalic HEENT: Within acceptable limits Neck is supple nontender Chest equal chest rise nontender to palpation Respiratory: Clear to auscultation no wheezes crackles or rubs CV: Rate rhythm is regular no murmurs rubs or clicks Abdomen is distended secondary to body habitus upper laparoscopic sites clean dry and intact, umbilical surgical site sutures are intact, distal to the incision site is ecchymosis in various stages of resolution. Mildly tender to palpation. No surrounding erythema or edema. Back: No CVA tenderness no spinous process tenderness from cervical spine thoracic and lumbar spine Skin: Intact no petechiae rash induration ulceration or crepitus Extremities: Moving all extremity against resistance cap refill less than 2 seconds neurosensory intact Neuro: Awake alert oriented x3 Glascow coma 15 no focal deficits] Course Course Course Narrative: MRI shows a has a 5 mm impacted stone in the CBD. Patient needs ERCP discussed it with Dr Valencia who agrees. Dr. Dionte QUIROZ at [facility] accepts the patient for ERCP. Patient is in agreement with this plan. Quality Measures none Orders Category Date Time Status CT Screening NOW Care 12/11/24 16:03 Active MRI Screening NOW Care 12/11/24 16:[address] abdomen pelvis w con Stat Exams 12/11/24 16:03 Taken MR MRCP Stat Exams 12/11/24 Completed Blood Culture (Lab) Stat Lab 12/11/24 16:22 Received CBC Stat Lab 12/11/24 16:22 Completed CMP [Comprehensive Metabolic Panel] Stat Lab 12/11/24 16:22 Completed Lactate (Lactic Acid) Stat Lab 12/11/24 16:22 Completed PT [Prothrombin Time with INR] Stat Lab 12/11/24 16:22 Completed PTT [Partial Thromboplastin Time] Stat Lab 12/11/24 16:22 Completed Procalcitonin Stat Lab 12/11/24 16:22 Completed HYDROcodone*/APAP 5/325 [[place] 5/325] Med 12/11/24 16:04 Discontinued 1 tab PO X1 ONE Ondansetron Odt [Zofran Odt] Med 12/11/24 16:04 Discontinued 4 mg PO X1 ONE Vital Signs Vital signs: Vital Signs Temperature 100.0 F 12/11/24 15:57 Pulse Rate 86 12/11/24 15:57 Respiratory Rate 18 12/11/24 15:57 Blood Pressure 131/84 H 12/11/24 15:57 Pulse Oximetry (%) 97 12/11/24 15:57 Oxygen Delivery Method Room Air 12/11/24 15:57 Discharge Plan Plan Patient Disposition: [facility] Acute Care Fac Service Needed for Transfer: Gastroenterology Patient condition on transfer: Stable Prescriptions/Referrals Prescriptions/Med Rec: No Action clopidogrel [Plavix] 75 mg tablet 75 mg PO QDAY aspirin [Adult Aspirin Regimen] 81 mg tablet,delayed release (DR/EC) 81 mg PO QDAY losartan 25 mg tablet 25 mg PO QDAY famotidine 20 mg tablet 20 mg PO QDAY atorvastatin 80 mg tablet 80 mg PO QDAY Referrals: Miguel Church MD [Primary Care Provider, Family Practice] - In 1 week Problem List Clinical Impression: Choledocholithiasis Patient/Caregiver Discharge Instructions Print Language: Mosotho Stand Alone Forms: Myriam Award Info., Patient Portal Info Letter PA/GRAIN OPERATOR Supervising Physician PA/GRAIN OPERATOR Supervising Physician: Chon Wu ENP [facility] Labs Lab(s) Interpretation(s): No CBC shows no leukocytosis stable anemia of 9.9 and 30.1 respectively no thrombocytopenia Coags within acceptable limits CMP shows no significant electrolyte imbalances or renal impairment T. bili of 2.9 note this is a rise from the bili of 1.61-week ago. AST at 30 ALT at 84 alk phos at 140. Procalcitonin at 0.14. Imaging Imaging interpretation: interpreted by me Imaging Interpretation(s): MRCP shows a 5 mm impacted stone in the CBD. Patient is going to need an ERCP therefore transferred. Medication Administration(s) none Medication Administration History Discontinued Medications Hydrocodone Bitart/Acetaminophen (Hydrocodone/Apap 5/325 Tablet) 1 tab PO X1 ONE Stop: 12/11/24 16:05 Last Admin: 12/11/24 19:47 Dose: 1 tab Documented By: BRIANA Ondansetron HCl (Ondansetron Odt 4 Mg Tabrap) 4 mg PO X1 ONE; Protocol Stop: 12/11/24 16:05 Last Admin: 12/11/24 19:48 Dose: 4 mg Documented By: BRIANA Diagnosis Differential Diagnosis ED Complaint MDM: Choledocholithiasis abdominal abscess ileus
[2024-12-11 16:49] LABS: Lactate (Lactic Acid) 1.6 mMol/L (0.4-2.0)
[2024-12-11 16:54] LABS: Basophils # (Auto) 0.0 Thou/mm3 (0.0-0.2); Basophils % (Auto) 0 % (0-2.5); Eosinophils # (Auto) 0.1 Thou/mm3 (0.0-0.5); Eosinophils % (Auto) 1 % (0-10); Hematocrit 30.1 % (36.0-46.0); Hemoglobin 9.9 g/dL (12.0-16.0); Immature Granulocytes Auto 0.08 Thou/mm3 (0.00-0.00); Lymphocytes # (Auto) 2.1 Thou/mm3 (1.0-4.8); Lymphocytes % (Auto) 21 % (10-50); Mean Corpuscular HGB Conc 32.9 g/dl (31.0-37.0); Mean Corpuscular Hemoglobin 30.7 pg (25.0-35.0); Mean Corpuscular Volume 94 fL (80-100); Monocytes # (Auto) 1.0 Thou/mm3 (0.0-0.8); Monocytes % (Auto) 10 % (0-12); Neutrophils # (Auto) 6.6 Thou/mm3 (1.8-7.7); Neutrophils % (Auto) 67 % (37-80); Nucleated Red Blood Cell # 0.02 Thou/mm3 (0.00-0.00); Nucleated Red Blood Cell % 0 /100 WBC (0); Platelet Count 366 Thou/mm3 (140-440); RDW Standard Deviation 43.3 fL (36.4-46.3); Red Blood Count 3.22 Miln/mm3 (4.00-5.20); White Blood Count 9.9 Thou/mm3 (3.6-11.0)
[2024-12-11 17:06] LABS: INR 0.9 (0.9-1.3); Partial Thromboplastin Time 26.5 Seconds (22.0-36.0); Prothrombin Time 10.1 Seconds (9.0-12.2)
[2024-12-11 17:30] LABS: Alanine Aminotransferase 84 U/L (10-49); Albumin, Serum 4.1 gm/dL (3.4-4.8); Albumin/Globulin Ratio 1.6 (1.2-2.2); Alkaline Phosphatase 140 U/L (46-116); Anion Gap 10 (7-16); Aspartate Amino Transferase 30 U/L (0-34); BUN/Creatinine Ratio 13 Ratio (12-20); Bilirubin,Total 2.9 mg/dL (0.3-1.2); Blood Urea Nitrogen 10 mg/dL (9-23); Calcium 9.3 mg/dL (8.3-10.6); Calcium (Corrected) 9.3 mg/dL (8.5-10.1); Carbon Dioxide 26.3 mMol/L (20.0-31.0); Chloride 103 mMol/L (98-107); Creatinine (Component) 0.8 mg/dL (0.6-1.3); Estimated Creatinine Clearance 65.3 mL/min (>60); Globulin 2.5 gm/dL (2.3-3.5); Glucose 105 mg/dL (74-106); Osmolality,Calculated 276 (275-295); Potassium 4.0 mMol/L (3.4-5.1); Procalcitonin 0.14 ng/ml (0.0-0.49); Sodium 139 mMol/L (136-145); Total Protein 6.6 gm/dL (5.7-8.2); eGFR > 60 See Note
[2024-12-11 18:04] VITALS: BP 125/72; PULSE 76; RESP 22; TEMP 37.2; O2SAT 95
[2024-12-11] MEDS: HYDROcodone/APAP 5/325 TABLET 1 TAB PO (19:47)
[2024-12-11] MEDS: ONDANSETRON ODT 4 MG TABRAP PO (19:48)
--- NOTE | 2024-12-11 21:14 | PC.NURSE ---
[facility] Accepts for ERCP, MD CORREA ED to ED Report [phone] KIRILL [place]
[2024-12-11 21:25] VITALS: BP 134/58; PULSE 70; RESP 16; TEMP 36.9; O2SAT 95
== END 2024-12-11 22:08 | disposition short-term general hospital (02) ==
PROVIDERS: Nurse Practitioner Family; Emergency Provider Emergency Medicine; PCP Family Medicine
DX: K80.50 Calculus of bile duct without cholangitis or cholecystitis without obstruction (principal); Z75.1 Person awaiting admission to adequate facility elsewhere
CPT/HCPCS: 36415; 74177; 74181; 80053; 83605; 84145; 85025; 85610; 85730; 87040; 99284; A4649; Q0162; Q9967; A9270